=== PATIENT | female | born 1945 | race Two or more races ===

== ENCOUNTER 2022-02-14 06:57 | Inpatient (IN) | payer OTHER ==
[~2022-02-14] VITALS: Ht 154.9 cm; Wt 67.3 kg
[~2022-02-14 06:57] MED LIST: BENA40TA8 PO; CHOL20009 PO; METF-370 PO
[2022-02-14 07:40] LABS: Basophils # (auto) 0 10 ^3/uL (0-0.2); Eosinophils # (auto) 0.1 10 ^3/uL (0-0.8); Lymphocytes # (auto) 1.6 10 ^3/uL (0.4-5.4); Monocytes # (auto) 0.3 10 ^3/uL (0-1.3); White Blood Cell 5.1 10^3/uL (4.4-10.8)
[2022-02-14 07:42] LABS: Basophils % (auto) 0.8 % (0.0-2.0); Eosinophils % (auto) 1.6 % (0.0-7.0); Hemoglobin 11.7 g/dL (12.2-16.2); Lymphocytes % (auto) 31.6 % (10.0-50.0); Mean Corpuscular Hemoglobin 25.1 pg (28.0-32.0); Mean Corpuscular Hgb Conc. 32.4 g/dL (32.0-36.0); Mean Corpuscular Volume 77.4 fL (80.0-100.0); Monocytes % (auto) 5.9 % (0.0-12.0); Neutrophils # (auto) 3.1 10 ^3/uL (1.6-8.6); Neutrophils % (auto) 60.1 % (37.0-80.0); Red Blood Cells 4.64 10^6/uL (4.0-5.20); Red Cell Distribution Width 16.1 % (11.8-14.3)
[2022-02-14] MEDS ORDERED: HYDROcodone-ACET 5/325MG TAB PO ONE (07:45)
[2022-02-14 07:55] LABS: Albumin 3.5 g/dL (3.4-5.0); BUN/Creatinine Ratio 12.9; Magnesium 2.1 mg/dL (1.6-2.6); Potassium 3.8 mmol/L (3.5-5.1)
[2022-02-14 08:04] LABS: INR 1.01 (0.9-1.15); Partial Thromboplastin Time 26.8 sec (24.6-33.4)
[2022-02-14 08:05] LABS: Bilirubin, Total 0.4 mg/dL (0.2-1.0); Total Protein 8.5 g/dL (6.4-8.2)
[2022-02-14 09:24] LABS: Urine Bacteria NONE SEEN /hpf (None Seen); Urine Blood Negative /uL (Negative); Urine Specific Gravity 1.009 (1.001-1.035); Urine WBC 1 /hpf (0 - 5)
[2022-02-14] MEDS ORDERED: ASPirin 325 MG TAB PO ONE (10:30)
[2022-02-14] MEDS ORDERED: NITROGLYCERIN 0.4 MG SL TAB SL PRN (14:30)
[2022-02-14] MEDS ORDERED: DOCUSATE SOD 100 MG CAP PO PRN (14:30)
[2022-02-14] MEDS ORDERED: ACETAMINOPHEN 325 MG TAB PO PRN (14:30)
[2022-02-14] MEDS ORDERED: HYDROcodone-ACET 5/325MG TAB PO PRN (14:30)
[2022-02-14] MEDS ORDERED: DEXTROSE (50%) 50ML SYRG IV PRN (14:45)
[2022-02-14] MEDS ORDERED: KETOROLAC TROMETH 30 MG/ML 1ML VIAL IV PRN (15:00)
[2022-02-14 15:55] LABS: Cholesterol 178 mg/dL (< 200); HDL Cholesterol 56 mg/dL (40-59); LDL Cholesterol 108 mg/dL (< 100); Triglycerides 167 mg/dL (< 150)
[2022-02-14] MEDS: hydrALAZINE HCL 10 MG TAB PO PRN (15:56)
[2022-02-14] MEDS: InsuLIN REG 1unit/0.01ml Soln (100units/ml) SC SCH ×2 (17:00→23:13)
[2022-02-14] MEDS: ACCU-CHEK COMFORT CURVE STRIP VI SCH ×2 (17:00→22:58)
[2022-02-14] MEDS: CLOPIDOGREL BISULFATE 75 MG TAB PO SCH (22:57)
[2022-02-14] MEDS: ATORVASTATIN 20 MG TAB PO SCH (22:57)
[2022-02-14] MEDS: SODIUM CHLORIDE 0.9% 1,000 ML IV SCH (23:15)
[2022-02-15] MEDS: MORPHINE SULFATE INJ 2 MG/ml SYRG IV PRN ×2 (03:44→12:40)
[2022-02-15] MEDS: SODIUM CHLORIDE 0.9% 1,000 ML IV SCH (06:36)
[2022-02-15] MEDS: ACCU-CHEK COMFORT CURVE STRIP VI SCH ×4 (06:36→21:34)
[2022-02-15] MEDS: InsuLIN REG 1unit/0.01ml Soln (100units/ml) SC SCH ×4 (06:45→21:46)
[2022-02-15 07:00] LABS: BUN/Creatinine Ratio 18.6; Basophils # (auto) 0 10 ^3/uL (0-0.2); Basophils % (auto) 0.5 % (0.0-2.0); Calcium 8.8 mg/dL (8.5-10.1); Eosinophils # (auto) 0.1 10 ^3/uL (0-0.8); Hematocrit 34.5 % (36.0-46.0); Lymphocytes # (auto) 1.8 10 ^3/uL (0.4-5.4); Monocytes # (auto) 0.4 10 ^3/uL (0-1.3); Potassium 3.3 mmol/L (3.5-5.1); White Blood Cell 4.9 10^3/uL (4.4-10.8)
[2022-02-15 07:02] LABS: Eosinophils % (auto) 1.9 % (0.0-7.0); Hemoglobin 10.8 g/dL (12.2-16.2); Lymphocytes % (auto) 37.4 % (10.0-50.0); Mean Corpuscular Hemoglobin 24.4 pg (28.0-32.0); Mean Corpuscular Hgb Conc. 31.4 g/dL (32.0-36.0); Mean Corpuscular Volume 77.7 fL (80.0-100.0); Monocytes % (auto) 8.3 % (0.0-12.0); Neutrophils # (auto) 2.5 10 ^3/uL (1.6-8.6); Neutrophils % (auto) 51.9 % (37.0-80.0); Nucleated Red Blood Cells % 0.2 %; Red Blood Cells 4.44 10^6/uL (4.0-5.20); Red Cell Distribution Width 15.8 % (11.8-14.3)
[2022-02-15 07:03] LABS: Bilirubin, Total 0.6 mg/dL (0.2-1.0); Total Protein 7.5 g/dL (6.4-8.2)
[2022-02-15] MEDS: ADENOSINE 50 MG in GIVE UN-DILUTED 0 ML IV STA ×2 (07:20→10:01)
[2022-02-15] MEDS: CLOPIDOGREL BISULFATE 75 MG TAB PO SCH (10:00)
[2022-02-15] MEDS: TRIAMTERENE/HCTZ 75/50MG TABLET PO SCH (10:00)
[2022-02-15] MEDS: BENAZEPRIL HCL 10 MG TAB PO SCH (10:00)
[2022-02-15] MEDS: CHOLECALCIFEROL (VITD3) 2,000 UNIT CAP/TAB PO SCH (10:00)
[2022-02-15] MEDS: ENOXAPARIN SOD 40 MG/0.4 ML SYRINGE SC SCH (10:00)
[2022-02-15] MEDS ORDERED: ASPirin 81 mg TAB PO SCH (10:00)
[2022-02-15] MEDS: ONDANSETRON HCL 4 MG/2 ML VIAL IV PRN ×2 (12:40→23:08)
[2022-02-15] MEDS ORDERED: POTASSIUM CHL 20 Meq TABLET PO ONE (20:45)
[2022-02-15] MEDS: ATORVASTATIN 20 MG TAB PO SCH ×2 (21:45→21:51)
[2022-02-15 22:37] VITALS: BP 149/49
[2022-02-16 05:00] VITALS: BP 158/34
[2022-02-16] MEDS: ACCU-CHEK COMFORT CURVE STRIP VI SCH ×4 (05:09→21:01)
[2022-02-16] MEDS: InsuLIN REG 1unit/0.01ml Soln (100units/ml) SC SCH ×4 (05:09→21:04)
[2022-02-16] MEDS: hydrALAZINE HCL 10 MG TAB PO PRN (05:13)
[2022-02-16] MEDS ORDERED: CLOP75TA28 PO (05:36)
[2022-02-16] MEDS ORDERED: PIOG15TA25 PO (05:36)
[2022-02-16] MEDS ORDERED: LOSA25TA38 PO (05:36)
[2022-02-16 06:20] VITALS: BP 136/70
[2022-02-16 09:00] VITALS: BP 154/50
[2022-02-16] MEDS: BENAZEPRIL HCL 10 MG TAB PO SCH (09:34)
[2022-02-16] MEDS: ENOXAPARIN SOD 40 MG/0.4 ML SYRINGE SC SCH (09:35)
[2022-02-16] MEDS: TRIAMTERENE/HCTZ 75/50MG TABLET PO SCH (09:35)
[2022-02-16] MEDS: CHOLECALCIFEROL (VITD3) 2,000 UNIT CAP/TAB PO SCH (09:35)
[2022-02-16] MEDS: CLOPIDOGREL BISULFATE 75 MG TAB PO SCH (09:35)
[2022-02-16 13:00] VITALS: BP 138/45
[2022-02-16] MEDS ORDERED: IOHEXOL 350 MG/ML 100ML IJ ONE (13:27)
[2022-02-16 17:00] VITALS: BP 137/52
[2022-02-16] MEDS: ATORVASTATIN 20 MG TAB PO SCH (21:00)
[2022-02-16 22:00] VITALS: BP 130/57
[2022-02-17 05:00] VITALS: BP 140/52
[2022-02-17] MEDS: ACCU-CHEK COMFORT CURVE STRIP VI SCH ×2 (06:32→11:08)
[2022-02-17] MEDS: InsuLIN REG 1unit/0.01ml Soln (100units/ml) SC SCH ×2 (06:32→11:09)
[2022-02-17] MEDS: TRIAMTERENE/HCTZ 75/50MG TABLET PO SCH (09:32)
[2022-02-17] MEDS: BENAZEPRIL HCL 10 MG TAB PO SCH (09:32)
[2022-02-17] MEDS: CLOPIDOGREL BISULFATE 75 MG TAB PO SCH (09:33)
[2022-02-17] MEDS: ENOXAPARIN SOD 40 MG/0.4 ML SYRINGE SC SCH (09:33)
[2022-02-17] MEDS: CHOLECALCIFEROL (VITD3) 2,000 UNIT CAP/TAB PO SCH (09:33)
[2022-02-17 09:46] VITALS: BP 143/48
[2022-02-17 13:09] VITALS: BP 161/53
[2022-02-17 16:54] VITALS: BP 143/48
== END 2022-02-17 17:10 | disposition home or self-care (01) | DRG 305 ==
LOC: ER 06:57 → EDBD 06:57 → TELE 14:28 → TELE-WESTW 02-15 22:30
PROVIDERS: ADMIT Nurse Practitioner Family; ATTEND Nurse Practitioner Acute Care
DX: I16.0 Hypertensive urgency (principal); I50.32 Chronic diastolic (congestive) heart failure; I24.9 Acute ischemic heart disease, unspecified; J84.9 Interstitial pulmonary disease, unspecified; E78.5 Hyperlipidemia, unspecified; I11.0 Hypertensive heart disease with heart failure; E11.9 Type 2 diabetes mellitus without complications; Z20.822 Contact with and (suspected) exposure to COVID-19; Z86.73 Personal history of transient ischemic attack (TIA), and cerebral infarction without residual deficits; Z79.899 Other long term (current) drug therapy; Z79.84 Long term (current) use of oral hypoglycemic drugs; Z88.8 Allergy status to other drugs, medicaments and biological substances; Z90.49 Acquired absence of other specified parts of digestive tract
CPT/HCPCS: 36415; 71045; 71275; 73030; 78452; 80053; 80061; 81001; 82962; 83036; 83735; 83880; 84443; 84484; 85025; 85379; 85610; 85730; 87426; 93005; 93017; 93306; 96360; 96372; G0378; J0153; J1815; J2405

== ENCOUNTER 2024-08-22 21:40 | Emergency (ER) | payer MEDICARE, OTHER ==
[~2024-08-22] VITALS: Ht 152.4 cm; Wt 57.3 kg
[~2024-08-22 21:40] MED LIST changes: +BENA40TA71 PO; -BENA40TA8 PO; +CLOP75TA28 PO; +LOSA-533 PO; +PIOG15TA25 PO
--- NOTE | 2024-08-22 22:50 | DVH ---
EXAM: XY L ANKLE 3 VIEW HISTORY: fall/injury COMPARISON: None TECHNIQUE: Three views of the left ankle were performed. Findings/ IMPRESSION: No obvious fracture or dislocation. Diffuse bone demineralization. Large inferior and posterior calc aneal enthesophytes.
--- NOTE | 2024-08-22 23:42 | DVH ---
History: Fall/trauma Comparison Study: None Technique: Multidetector spiral CT of the pelvis was performed from iliac crests to pubic symphysis. 100 cc of intravenous contrast was administered during this examination. Portal venous imaging was obtained. Axial, coronal and sagittal multiplanar reformats were performed by the technologist on a separate workstation. Radiation Dose : CT Dose: CTDI volume is 10.6 mGy. Dose-length product is 374 mGy*cm Findings: Visualized bowel: Small bowel and colon are normal in caliber and distribution. The appendix is not visualized; however, no secondary findings of acute appendicitis identified. Ascites: Absent Lymphadenopathy: No pelvic or mesenteric lymphadenopathy. Pelvis Wall and Mesentery: Unremarkable. Vasculature: The visualized abdominal aorta is normal in size and caliber. Abdominal and pelvic vess els demonstrate normal enhancement. Pelvic Organs: Unremarkable Musculoskeletal: No aggressive focal bony lesions, acute fractures or dislocation. Bladder: Unremarkable IMPRESSION: 1. No acute pelvic finding. END IMPRESSION:
[2024-08-22] MEDS: HYDROcodone-ACET 10/325MG TAB PO ONE (23:50)
[2024-08-22 23:51] VITALS: BP 137/63; PULSE 74; RESP 18; TEMP 97.9; O2SAT 98
--- NOTE | 2024-08-23 | DVH ---
INDICATION: Fall/trauma COMPARISON: None TECHNIQUE: CT of the left femur was performed without contrast. Volume transverse images were obtain ed and reconstructed in multiple planes using bone and soft tissue algorithms. Radiation Dose Information: CT Dose: CTDI volume is 9.9 mGy. Dose-length product is 478 mGy*cm FINDINGS: The alignment is normal. The joint spaces are normal. There is no fracture, dislocation or aggressive osseous lesion. There is no joint effusion. The soft tissues are normal. IMPRESSION: 1. No acute traumatic fracture or dislocation. 2. All CT scans at this medical facility are performed using dose modulation techniques as appropriat e to a performed exam including the following: Automated exposure control was utilized; adjustment of the MA and/or KV according to patient size; and use of iterative reconstruction technique.
[2024-08-23] MEDS ORDERED: IBUP1TAB5 PO (00:31)
[2024-08-23] MEDS ORDERED: HYDR-4902 PO (00:31)
--- NOTE | 2024-08-23 00:32 | ED.PDOC ---
Musculoskeletal HPI Comments This patient is an 79-year-old female who arrives the ED today with a caregiver for evaluation of low back, left upper leg and left foot pain concerns status post ground level fall at home approximately 1 hour prior to arrival. According to caregiver, patient was utilizing her walker when she fell backwards and landed on her hip and leg. Patient complained of foot, leg and back pain concerns. According to caregiver, patient has a history of musculoskeletal concerns and has been unremarkable. Patient denies any head trauma. She was mildly hypotensive on arrival. 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 Allergies: Coded Allergies: Aspirin (Verified Allergy, Unknown, 12/23/15) Caffeine (Verified Allergy, Unknown, 12/23/15) Phenacetin (Verified Allergy, Unknown, 12/23/15) Home Meds Reported Medications Clopidogrel Bisulfate (Plavix) 75 Mg Tab, 75 MG PO, TAB 02/16/22 Losartan Potassium (Losartan Potassium) 25 Mg Tab, 25 MG PO DAILY for 30 Days, MG 02/16/22 Pioglitazone Hcl-Metformin Hcl (Actoplus Met) 15 Mg/850 Mg Tab, 15 MG PO 02/16/22 Benazepril Hcl (Benazepril Hcl) 40 Mg Tab, 40 MG PO DAILY, TAB 04/29/13 Cholecalciferol (VITAMIN D) 2,000 Unit Tab, 2000 UNIT PO DAILY, TAB 04/29/13 Metformin Hydrochloride (Metformin Hcl) 500 Mg Tab, 500 MG PO TID, TAB 04/29/13 Information Source: Patient, Friend, Emergency Med Personnel Mode of Arrival: EMS Location: Left Extremity Location: Foot, Hip, Leg Timing: Hours Prehospital treatment: None Severity: Moderate Able to Move Extremity: Yes Bear Weight: Limited Pain: Moderate Hand Dominance: Right Circumstances: Fall Onset of Symptoms: After Trauma Symptoms: Pain DVT Risk Factors: NONE Last Tetanus: UTD Past Medical History PAST MEDICAL HISTORY: Arthritis, CVA, DM, High Lipids, HTN, PE Surgical History: Cholecystectomy 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 STRIPPER 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: No Pertinent FRAME STRIPPER History Family History Family History: Reviewed,noncontributory to illness, No family hx of Stroke Social History Smoker: Non-Smoker Alcohol: Denies ETOH Use Drugs: Denies Drug Use Lives In: Home Constitutional: denies: chills, diaphoresis, fatigue, fever, malaise, sweats, weakness, others EENTM: denies: blurred vision, double vision, ear bleeding, ear discharge, ear drainage, ear pain, ear ringing, eye pain, eye redness, hearing loss, mouth pain, mouth swelling, nasal discharge, nose bleeding, nose congestion, nose pain, photophobia, tearing, throat pain, throat swelling, voice changes, others Respiratory: denies: cough, hemoptysis, orthopnea, SOB at rest, shortness of breath, SOB with excertion, stridor, wheezing, others Cardiovascular: denies: chest pain, dizzy spells, diaphoresis, Dyspnea on exertion, edema, irregular heart beat, left arm pain, lightheadedness, palpitations, PND, syncope, others Gastrointestinal: denies: abdomen distended, abdominal pain, blood streaked bowels, constipated, diarrhea, dysphagia, difficulty swallowing, hematemesis, melena, nausea, poor appetite, poor fluid intake, rectal bleeding, rectal pain, vomiting, others Genitourinary: denies: abnormal vagina bleeding, burning, dyspareunia, dysuria, flank pain, frequency, hematuria, incontinence, pain, , vagina discharge, urgency, others Neurological: denies: dizziness, fainting, headache, left sided numbness, left sided weakness, numbness, paresthesia, pre-existing deficit, right sided numbness, right sided weakness, seizure, speech problems, tingling, tremors, weakness, others Musculoskeletal: reports: back pain, others (Left leg pain, left foot pain); denies: gout, joint pain, joint swelling, muscle pain, muscle stiffness, neck pain Integumetry: denies: bruises, change in color, change in hair/nails, dryness, laceration, lesions, lumps, rash, wounds, others Allergic/Immunocompromised: denies: Difficulty Healing, Frequent Infections, Hives, Itching, others Hematologic/Lymphatic: denies: anemia, blood clots, easy bleeding, easy bruising, swollen glands, others Endocrine: denies: excessive hunger, excessive sweating, excessive thirst, excessive urination, flushing, intolerance to cold, intolerance to heat, unexplained weight gain, unexplained weight loss, others Psychiatric: denies: anxiety, bipolar disorder, depression, hopeless, panic disorder, schizophrenia, sleepless, suicidal, others Physical Exam General Appearance: Moderate Distress (Due to left-sided low back, hip, leg and foot concerns), Normal HEENT: Normal ENT Inspection, Pharynx Normal, TMs Normal Neck: Full Range of Motion, Non-Tender, Normal, Normal Inspection Respiratory: Chest Non-Tender, Lungs Clear, No Accessory Muscle Use, No Respiratory Distress, Normal Breath Sounds Cardiovascular: No Edema, No JVD, No Murmur, No Gallop, Normal Peripheral Pulses, Regular Rate/Rhythm Breast Exam: Deferred Gastrointestinal: No Organomegaly, Non Tender, No Pulsatile Mass, Normal Bowel Sounds, Soft Genitalia: Deferred Pelvic: Deferred Rectal: Deferred Extremities: Other (Diffuse tenderness to palpation through the left-sided lower back into the left-sided hip, left leg and left foot. No definitive edema or ecchymosis appreciated. [id number] reduced range of motion. Distal neurovascularly intact. Patient denies any saddle paresthesia.) Neurologic: Alert, wet mix operator II-XII nml as Tested, No Motor Deficits, Normal Affect, Normal Mood, No Sensory Deficits Cerebellar Function: Normal Reflexes: Normal Skin: Dry, Normal Color, Warm Lymphatic: No Adenopathy Was a procedure done? Was a procedure done?: No Differential Diagnosis EXT Differential Diagnosis: Fracture, Sprain, Dislocation, Contusion, Strain X-Ray, Labs, Meds, VS Vital Signs Date Time Temp Pulse Resp B/P (MAP) Pulse Ox O2 Delivery O2 Flow Rate FiO2 08/22/24 23:51 74 18 98 Room Air* 0 21 08/22/24 23:51 97.9 74 18 137/63 (87) 98 97.9 08/22/24 21:49 98.8 83 18 101/56 (71) 97 98.8 Current Medications Medications (Trade) Dose Ordered Sig/Karis Route Start Time Stop Time Status Last Admin Acetaminophen/ Hydrocodone Bitart (Emmet 10/325MG Tab) 1 tab ONCE ONCE PO 08/22/24 23:15 08/22/24 23:16 DC 08/22/24 23:50 X-Ray, Labs, Meds, VS Comment All studies performed the ED were evaluated by me personally. EKG revealed a sinus rhythm with a rate of 73. Borderline repolarization abnormality and prolonged QT interval noted. CA interval of 142 and QT interval of 560. Imaging studies of the left foot was unremarkable for any fractures or dislocations. CT study of pelvis and left femur were unremarkable for any fractures or dislocations. Patient sustained contusions related to her fall event. Advise utilizing pain medication as needed and follow up with primary care provider. Time of 1ST Reevaluation: 00:26 Reevaluation 1ST: Improved Consultation: PCP Patient Education/Counseling: Diagnosis, Treatment Family Education/Counseling: Diagnosis, Treatment Departure 1 Departure Time of Disposition: 00:27 Impression: Primary Impression: Contusion, hip and thigh Additional Impression: Sprain of left foot Disposition: HOME / SELF CARE / HOMELESS Condition: Stable Additional Instructions: Advised pain medication as needed as well as ice therapy. Patient should follow up with primary care provider for continued evaluation. e-Prescriptions Hydrocodone-Acetaminophen (Hydrocodone Bitartrate/AC 5-325 mg) 1 Tab Tab 1 TAB PO Q6HP PRN, #20 TAB Prov: KELLY AGUERO PAC 08/23/24 Ibuprofen Micronized (Ibuprofen) 600 Mg Tab 600 MG PO Q6HP PRN, #20 TAB Prov: KELLY AGUERO PAC 08/23/24 Discharged With: Self, Friend Critical Care Note Critical Care Time?: No Stability Stability form required: No Heart Score Heart Score: Heart Score Response (Comments) Value History N/A 0 EKG N/A 0 Age N/A 0 Risk Factors N/A 0 Troponin N/A 0 Total 0 KELLY AGUERO PAC August 23, 2024 00:32
--- NOTE | 2024-08-25 10:34 | ECG ---
[facility] Test Date: 2024-08-22 Test Time: 21:58:25 Pat Name: TYSON LÓPEZ Department: ED Room: Gender: F Photograph Finisher: : 1945 Requested By: KELLY AGUERO Order Number: [id number] Reading MD: Measurements Intervals [place] Rate: 73 P: 41 SC: 142 QRS: 57 QRSD: 83 T: 19 QT: 560 QTc: 618 Interpretive Statements Sinus rhythm Borderline repolarization abnormality Prolonged QT interval Please click the below link to view image of tracing.
== END 2024-08-23 02:26 | disposition home or self-care (01) ==
LOC: EDBD 21:40 → ER 21:45
DX: S93.692A Other sprain of left foot, initial encounter (principal); S70.02XA Contusion of left hip, initial encounter; S70.12XA Contusion of left thigh, initial encounter; I10 Essential (primary) hypertension; E11.9 Type 2 diabetes mellitus without complications; M19.90 Unspecified osteoarthritis, unspecified site; Z79.84 Long term (current) use of oral hypoglycemic drugs; Z79.899 Other long term (current) drug therapy; Z90.49 Acquired absence of other specified parts of digestive tract; Z88.6 Allergy status to analgesic agent; Z88.2 Allergy status to sulfonamides; Z88.8 Allergy status to other drugs, medicaments and biological substances; W18.39XA Other fall on same level, initial encounter; Y93.89 Activity, other specified; Y92.89 Other specified places as the place of occurrence of the external cause; Y99.8 Other external cause status
CPT/HCPCS: 72192; 73610; 73700; 93005